=== PATIENT | female | born 1960 | race Caucasian/White ===

== ENCOUNTER → 2017-01-16 | Outpatient (REF) ==
--- NOTE | 2017-01-16 08:23 | REP ---
PA and lateral chest: Comparison is 06/20/2009. The lung kilpatrick are clear. The cardiac size is normal The tomasa, mediastinum, and bony thorax are unremarkable. Impression: Negative PA and lateral chest. There is no interval change. Signed by Lincoln Lynch MD 01/16/2017 08:14 A
[2017-01-16 08:52] LABS: MEAN CORPUSCULAR HEMOGLOBIN 30.7 pg (27.0-33.0); MEAN CORPUSCULAR HGB CONC 33.9 g/dl (32.0-36.5); MEAN CORPUSCULAR VOLUME 90.6 fl (80.0-96.0); RED CELL DISTRIBUTION WIDTH 12.7 % (11.5-14.5)
[2017-01-16 08:54] LABS: ANION GAP 9 MEQ/L (8-16); BLOOD UREA NITROGEN 15 MG/DL (7-18); CALCIUM LEVEL 8.9 MG/DL (8.5-10.1); CARBON DIOXIDE LEVEL 24 MEQ/L (21-32); CHLORIDE LEVEL 109 MEQ/L (98-107); CHOLESTEROL LEVEL 238 MG/DL (<200); CREATININE FOR GFR 0.72 MG/DL (0.55-1.02); GLOMERULAR FILTRATION RATE > 60.0 (>51); GLUCOSE, FASTING 162 MG/DL (70-105); POTASSIUM SERUM 4.2 MEQ/L (3.5-5.1); SODIUM LEVEL 142 MEQ/L (136-145); TRIGLYCERIDES LEVEL 210 MG/DL (<150)
--- NOTE | 2017-01-16 17:09 | ECGEPIP ---
Stationary ECG Study [facility] Test Date: 2017-01-16 Pat Name: MITCH PHILLIPS Department: Room: - Gender: F [employer]: : 1960 Requested By: Jesenia ORTIZ Order Number: [id number] Reading MD: Jag Guzman Measurements Intervals Dickens Rate: 83 P: 76 SD: 169 QRS: 40 QRSD: 90 T: 14 QT: 372 QTc: 437 Interpretive Statements SINUS RHYTHM NONSPECIFIC T-WAVE ABNORMALITY Comparison tracing not on file Electronically Signed On 01-16-2017 17:09:41 EDT by Jag Guzman
== END ==
LOC: M LAB 07:43
PROVIDERS: ATTEND Nurse Practitioner Adult Health
DX: Z02.9 Encounter for administrative examinations, unspecified (principal)

== ENCOUNTER → 2020-09-06 | Outpatient (CLI) | payer BC | LOC: M LABSMTC 09:39 | PROVIDERS: ATTEND Pediatrics | DX: Z20.828 Contact with and (suspected) exposure to other viral communicable diseases (principal) ==

== ENCOUNTER → 2023-02-09 | Outpatient (REF) | LOC: M EMP 09:58 | PROVIDERS: ATTEND Family Medicine | DX: Z11.52 Encounter for screening for COVID-19 (principal) ==